=== PATIENT | male | born 1945 | race Caucasian/White ===

== ENCOUNTER 2022-02-20 21:37 | Emergency (ER) | payer OTHER ==
[~2022-02-20] VITALS: Ht 167.6 cm; Wt 64.0 kg
[2022-02-20] MEDS ORDERED: CEFUROXIME500 MG (21:47)
== END 2022-02-21 09:29 ==
LOC: ER 21:37
DX: N39.0 Urinary tract infection, site not specified (principal); R50.9 Fever, unspecified; N40.0 Benign prostatic hyperplasia without lower urinary tract symptoms